=== PATIENT | male | born 1950 | race Caucasian/White ===

== ENCOUNTER 2017-01-08 16:18 | Emergency (ER) | payer MEDICARE, OTHER ==
--- NOTE | ~2017-01-08 | CR71 ---
[facility] A Service of [facility] RADIOLOGY TEXT RESULTS PATIENT: OSIEL WILKES LOCATION: [facility] : 54 UNIT #: [id number] AGE: [address]: Omayra Jones MD SEX: M ORDER DR: [id number] [facility] [address] [place], [place] [address] [id number] E MR#: [id number] Acc #: [id number] NAME: OSIEL WILKES : 1950 SEX: M STUDY DATE/TIME: 01/08/2017 16:27 UNIT: [facility] ROOM: STUDY DESCRIPTION: CR Chest Single View Attending Physician: Omayra Jones M.D. Ordering Physician: Omayra Jones M.D. Primary Care Physician: Perla Dent M.D. MEDICAL IMAGING REPORT This report is preliminary unless electronic signature is present EXAM Portable chest in 2 views 01/08/2017 COMPARISON 07/10/2016. HISTORY Mid-chest pain for 1 day. FINDINGS There is no dense consolidation but interstitial changes seen on the prior study are much more prominent on the current exam, seen in the mid to lower portions of both lungs, right slightly greater than left. Etiology unclear. Heart size within normal limits. There has been prior coronary stenting. There is no pneumothorax or effusion or suspicious nodule. Dictated by... Woo Kang M.D. THIS IS AN ELECTRONICALLY VERIFIED REPORT Woo Kang M.D. at 01/09/2017 2:59 PM TEV/pcl TD: 01/08/2017 18:22 JOB #: [id number] MEDICAL IMAGING REPORT Page 1 of 1 COPY
--- NOTE | ~2017-01-08 | EKG ---
PATIENT: OSIEL WILKES UNIT #: [id number] Ventricular Rate: 70 BPM Atrial Rate: 70 BPM P-R Interval: 160 ms QRS Duration: 86 ms Q-T Interval: 382 ms QTC Calculation(Bezet): 412 ms P Tennyson: 66 degrees Calculated R Tennyson: 23 degrees Calculated T Tennyson: 37 degrees Diagnosis Line: Normal sinus rhythm Diagnosis Line: Normal ECG Diagnosis Line: When compared with ECG of 01-JUN-2016 08:58, Diagnosis Line: Nonspecific T wave abnormality no longer evident Diagnosis Line: in Inferior leads Diagnosis Line: Confirmed by ZION BESS MD ([id number]) on 01/09/2017 Diagnosis Line: 8:01:49 PM INTERPRETING MD: MARIA ALEJANDRA MAC
[~2017-01-08 16:18] MED LIST: ACETAMINOPHEN650 M1 PO; ASPIRIN81 M2 PO; ASPIRIN81 MG PO; Advair; BENTYL20 M1 PO; CARAFATE1 GM PO; CARVEDILOL6.25 MG PO; CELECOXIB200 MG PO; CLOPIDOGREL BIS75 MG PO; CLOPIDOGREL75 MG PO; COMBIVENT U/D3 M2 INH; COREG3.125 M1 PO; COREG6.25 MG PO; DAKIN'S MODIF1000 ML EXT; DESYREL50 M1 PO; DICYCLOMINE HCL20 MG PO; DULOXETINE HCL60 MG PO; FLEXERIL10 M1 PO; FLORINEF0.1 M1 PO; GLIPIZIDE PO; IBUPROFEN PO; IBUPROFEN400 MG PO; IBUPROFEN800 MG PO; IMDUR-ER60 M1 PO; JANUVIA PO; JANUVIA100 MG PO; KCL PO; LEVAQUIN750 MG PO; LEVEMIR100 U/ML SQ; LEVEMIR100 U/ML SUBQ; LEVEMIR100 UNITS/ SUBQ; LEVIMIR SUBQ; LEVOFLOXACIN500 MG PO; LIPITOR80 MG PO; LISINOPRIL5 MG PO; LISINPRIL PO; LOW DOSE ASPIRI81 M1 PO; MAG-OX 400400 M1 PO; METHIMAZOLE10 MG PO; METOCLOPRAMIDE10 M1 PO; NEURONTIN PO; NEURONTIN300 MG PO; NEURONTIN600 MG PO; NEXIUM PO; NICOTINE TRANSD21 MG EXT; NITROGLYGERIN0.4 MG SL; NOVOLOG FL100 UNIT/1 SQ; NOVOLOG SUBQ; NOVOLOG100 U/M2 SUBQ; NOVOLOG100 U/ML SUBQ; NOVOLOG100 UNITS/ SUBQ; PAMELOR PO; PLAVIX PO; PREDNISONE; REFRESH5 ML OU; SANTYL15 G1 TP; SYMBICORT INH; TAPAZOLE10 MG PO; TIZANIDINE HCL4 M1 PO; TRAMADOL HCL50 M1 PO; TRAMADOL HCL50 M2 PO; ZANAFLEX PO; ZANAFLEX4 M1 PO; ZOCOR PO; ZOCOR20 MG PO
[2017-01-08 16:52] LABS: BASOPHIL# 0.1 X10e3 (0-0.3); BASOPHIL% 0.4 % (0-2.5); EOSINOPHIL# 0.3 X10e3 (0-0.7); EOSINOPHIL% 1.6 % (0.0-7.0); HEMATOCRIT 40.4 % (38.0-50.0); HEMOGLOBIN 13.6 gm/dL (13.0-16.0); LYMPHOCYTE# 1.3 X10e3 (1.0-3.5); LYMPHOCYTE% 7.8 % (17.0-45.0); MEAN CELL VOLUME 92.5 FL (83-96); MEAN CORPUSCULAR HEMOGLOBIN 31.1 PG (28-34); MEAN CORPUSCULAR HGB CONC 33.7 g/dL (30-36); MEAN PLATELET VOLUME 6.8 FL (6.5-11.5); MONOCYTE# 1.2 X10e3 (0-1.0); MONOCYTE% 7.3 % (3.0-12.0); NEUTROPHIL# 13.9 X10e3 (1.5-7.1); NEUTROPHIL% 82.9 % (40-75); PLATELET COUNT 294 X10e3 (140-420); RED BLOOD COUNT 4.37 X10e (3.90-5.60); RED CELL DISTRIBUTION WIDTH 13.7 % (11.0-15.5); WHITE BLOOD COUNT 16.8 X10e3 (4.0-10.5)
[2017-01-08 16:54] LABS: DIFF IND YES
[2017-01-08 16:57] LABS: PROTHROMBIN TIME (PATIENT) 10.8 SECONDS (9.6-11.5)
[2017-01-08 17:11] LABS: PLATELET ESTIMATE NORMAL (NORMAL)
[2017-01-08 17:19] LABS: ALBUMIN SERUM 3.4 g/dL (3.5-5.0); BILIRUBIN, DIRECT 0.1 mg/dL (0.0-0.2); BILIRUBIN,INDIRECT 0.5 mg/dL (0.0-0.9); BILIRUBIN,TOTAL 0.6 mg/dL (0.2-2.0); CALCIUM SERUM 8.6 mg/dL (8.4-10.2); GLOM FILT RATE Estimated 79.2 mL/min (>60); POTASSIUM 3.9 mmol/L (3.5-5.1); PROTEIN TOTAL SERUM 6.9 g/dL (6.0-8.3)
[2017-01-08 17:48] LABS: POC - CKMB 1.2 ng/mL (0.0-7.9); POC - TROPONIN <0.05 ng/mL (<=0.05)
[2017-01-08 18:42] LABS: POC - CKMB 1.2 ng/mL (0.0-7.9); POC - TROPONIN <0.05 ng/mL (<=0.05)
== END 2017-01-08 19:35 | disposition home or self-care (01) ==
LOC: CED 16:18
PROVIDERS: Emergency Medicine
DX: R07.9 Chest pain, unspecified (principal)
CPT/HCPCS: 36415; 71010; 80048; 80076; 82553; 84484; 85025; 85610; 93005; 99284

== ENCOUNTER → 2017-04-21 | Outpatient (CLI) | payer MEDICARE, OTHER ==
--- NOTE | ~2017-04-21 | US5 ---
[facility] A Service of [facility] RADIOLOGY TEXT RESULTS PATIENT: OSIEL WILKES LOCATION: [place] : 54 UNIT #: [id number] AGE: [address]: Perla Dent MD SEX: M ORDER DR: [id number] [facility] [address] [place], [place] [address] [id number] O MR#: [id number] Acc #: [id number] NAME: OSIEL WILKES : 1950 SEX: M STUDY DATE/TIME: 04/21/2017 10:09 UNIT: [facility] ROOM: STUDY DESCRIPTION: US Abdominal Complete Attending Physician: Perla Dent M.D. Referring Physician: Perla Dent M.D. Ordering Physician: Perla Dent M.D. Primary Care Physician: Perla Dent M.D. MEDICAL IMAGING REPORT This report is preliminary unless electronic signature is present EXAM Abdominal ultrasound INDICATIONS Right upper quadrant abdominal pain for the past 2 months. TECHNIQUE Loredo-scale and Doppler imaging right upper quadrant abdomen. COMPARISON 04/28/2013. FINDINGS The visualized segments abdominal aorta and inferior vena cava are unremarkable. Pancreas is mostly obscured by bowel gas and not well seen. Liver measures 13.7 cm. No visible liver mass on submitted images. Right kidney measures 11 cm and is unremarkable. Common duct measures 4 mm. Unremarkable gallbladder. Left kidney measures 11.2 cm and is unremarkable. Spleen measures 8.8 cm. IMPRESSION Pancreas obscured by bowel gas and not well seen. Otherwise, negative abdominal ultrasound. Dictated by... Kannan Morrow M.D. THIS IS AN ELECTRONICALLY VERIFIED REPORT Kannan Morrow M.D. at 04/22/2017 8:26 AM EED/edwina [facility] A Service of [facility] RADIOLOGY TEXT RESULTS PATIENT: OSIEL WILKES LOCATION: [facility] : 54 UNIT #: [id number] AGE: [address]: Perla Dent MD SEX: M ORDER DR: TD: 04/21/2017 17:14 JOB #: [id number] MEDICAL IMAGING REPORT Page 1 of 1 COPY
== END | disposition home or self-care (01) ==
LOC: CGUS 09:44
DX: R10.9 Unspecified abdominal pain (principal)
CPT/HCPCS: 76700